=== PATIENT | female | born 1930 | race African-American/Black ===

== ENCOUNTER 2016-09-11 11:21 | Emergency (ER) | payer SELFPAY ==
[~2016-09-11] VITALS: Ht 170.2 cm; Wt 81.6 kg
[2016-09-11] MEDS ORDERED: IPRATRPIUM/ALBUTEROL 0.5/2.5MG 3 ML NEBU. NEB ONE (12:30)
--- NOTE | 2016-09-11 12:55 | RAD ---
AP chest radiograph 09/11/2016 Clinical indication: Shortness of air. Comparison: None. Findings: Mild enlargement of the cardiac silhouette without pulmonary venous hypertension. There is a trace left pleural effusion and mild left basilar atelectasis. No pneumothorax. Impression: Mild cardiomegaly, trace left pleural effusion and left basilar atelectasis.
--- NOTE | 2016-09-11 13:04 | EKG ---
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
--- NOTE | 2016-09-11 13:08 | PHYS DOC ---
Past Medical History Past Medical History: Asthma Past Surgical History: Cholecystectomy, Other Additional Past Surgical Histo: KIDNEY REMOVED? Alcohol Use: None Drug Use: None Adult General Chief Complaint Chief Complaint: SHORTNESS OF BREATH HPI HPI Patient is a 86 year old female brought to the ED by a family member with the complaint of short of air and legs swelling and left foot pain. It sounds like all of these have been going on for a while but the left foot pain may be more acute. Patient states she does have a history of asthma, sounds like it was diagnosed once in an ED. Patient does not take any medications and she does not have a doctor. She does not have any other diagnoses that she knows of. Patient has been short of air, denies cough or fever or chills. Patient has had bilateral leg swelling for "a long time", it may be worse but is not acute. She denies history of blood clots, denies fluid retention that she knows of. Patient has had pain on the bottom of her left foot more acutely. She denies injury. It hurts to walk on it. Patient lives with her son, who also has checked into the ED to be seen for right leg swelling. They were brought to the ED by I believe, the patient's brother, who visited them and was concerned. Review of Systems Review of Systems Constitutional: Denies fever or chills [] Eyes: Denies change in visual acuity, redness, or eye pain [] HENT: Denies nasal congestion or sore throat [] Respiratory: Denies cough but admits shortness of breath Cardiovascular: Denies chest pain GI: Denies abdominal pain, nausea, vomiting, bloody stools or diarrhea [] : Denies dysuria or hematuria [] Musculoskeletal: As in history of present illness, her pain is on the bottom of her left foot Integument: Denies rash or skin lesions [] Neurologic: Denies headache, focal weakness or sensory changes [] Current Medications Current Medications Current Medications Medications (Trade) Dose Ordered Sig/Mckenzie Start Time Stop Time Status Last Admin Dose Admin Albuterol/ Ipratropium (Duoneb) 3 ml 1X ONCE 09/11/16 12:30 09/11/16 12:31 DC 09/11/16 12:36 3 ML Allergies Allergies Allergies Coded Allergies Type Severity Reaction Last Updated Verified blueberry Allergy Intermediate 09/11/16 Yes Uncoded Allergies Type Severity Reaction Last Updated Verified HAIR DYES Allergy Mild "REACTION" 09/11/16 Physical Exam Physical Exam Constitutional: Well developed, well nourished, no acute distress, non-toxic appearance. No dyspnea, she does have a wheezy cough, pulse ox on room air 89-90 %. HENT: Normocephalic, atraumatic, bilateral external ears normal, nose normal. [ ] Eyes: conjunctiva normal, no discharge. [] Neck: Normal range of motion, no stridor. [] Cardiovascular:Heart rate regular rhythm, no murmur [] Lungs & Thorax: Prolonged expiratory phase throughout with expiratory wheezes, also rales in the bases especially left base Abdomen: Bowel sounds normal, soft, no tenderness, no masses, no pulsatile masses. [] Skin: Warm, dry, no erythema, no rash. [] Extremities: Calves, ankles, feet are bilaterally swollen with a plus pitting edema which appears chronic. There is no acute appearance of warmth or redness. Calves are soft bilaterally. [id number] unremarkable bilaterally. There is no skin breakdown over the Achilles area or posterior heel area. On the left plantar surface of the heel, there is some peeling of dry skin about 2 x 2 centimeters, this area is tender to palpation, but it does not have any deep skin breakdown, no redness, no evidence of cellulitis or abscess on inspection. Neurologic: Alert and oriented X 3, normal motor function, normal sensory function, no focal deficits noted. [] Current Patient Data Vital Signs Vital Signs Date Time Temp Pulse Resp B/P (MAP) Pulse Ox O2 Delivery O2 Flow Rate FiO2 09/11/16 14:00 70 165/76 (105) 90 Room Air 09/11/16 11:39 97.3 20 97.3 Lab Values Laboratory Tests Test 09/11/16 13:05 White Blood Count 5.4 x10^3/uL (4.0-11.0) Red Blood Count 4.57 x10^6/uL (3.50-5.40) Hemoglobin 13.5 g/dL (12.0-15.5) Hematocrit 41.1 % (36.0-47.0) Mean Corpuscular Volume 90 fL (79-100) Mean Corpuscular Hemoglobin 30 pg (25-35) Mean Corpuscular Hemoglobin Concent 33 g/dL (31-37) Red Cell Distribution Width 15.5 % (11.5-14.5) H Platelet Count 228 x10^3/uL (140-400) Neutrophils (%) (Auto) 65 % (31-73) Lymphocytes (%) (Auto) 16 % (24-48) L Monocytes (%) (Auto) 10 % (0-9) H Eosinophils (%) (Auto) 9 % (0-3) H Basophils (%) (Auto) 1 % (0-3) Neutrophils # (Auto) 3.5 x10^3uL (1.8-7.7) Lymphocytes # (Auto) 0.9 x10^3/uL (1.0-4.8) L Monocytes # (Auto) 0.5 x10^3/uL (0.0-1.1) Eosinophils # (Auto) 0.5 x10^3/uL (0.0-0.7) Basophils # (Auto) 0.0 x10^3/uL (0.0-0.2) Sodium Level 141 mmol/L (136-145) Potassium Level 4.2 mmol/L (3.5-5.1) Chloride Level 102 mmol/L (98-107) Carbon Dioxide Level 36 mmol/L (21-32) H Anion Gap 3 (6-14) L Blood Urea Nitrogen 10 mg/dL (7-20) Creatinine 0.8 mg/dL (0.6-1.0) Estimated GFR (Cockcroft-Gault) 82.7 BUN/Creatinine Ratio 13 (6-20) Glucose Level 97 mg/dL (70-99) Calcium Level 9.2 mg/dL (8.5-10.1) Total Bilirubin 0.3 mg/dL (0.2-1.0) Aspartate Amino Transferase (AST) 15 U/L (15-37) Alanine Aminotransferase (ALT) 14 U/L (14-59) Alkaline Phosphatase 90 U/L (46-116) BJ-Yld-I-Type Natriuretic Peptide 35 pg/mL (0-449) Total Protein 6.8 g/dL (6.4-8.2) Albumin 3.2 g/dL (3.4-5.0) L Albumin/Globulin Ratio 0.9 (1.0-1.7) L Laboratory Tests 09/11/16 13:05 Laboratory Tests 09/11/16 13:05 EKG EKG 12-lead EKG read by me. Sinus rhythm. Heart rate 74. There are no acute ST or T wave changes indicative of ischemia or infarction. No STEMI. 1221 Pulse ox on room air interpreted by me. 89-90% on room air. Hypoxia. resident physician interpreted by me. Sinus rhythm. Heart rate 70s. No rhythm disturbance or premature contractions noted. Normal. [] Radiology/Procedures Radiology/Procedures Portable chest x-ray read by the radiologist. Findings: Mild enlargement of the cardiac silhouette without pulmonary venous hypertension. There is a trace left pleural effusion and mild left basilar atelectasis. No pneumothorax. Impression: Mild cardiomegaly, trace left pleural effusion and left basilar atelectasis. [] Course & Med Decision Making Course & Med Decision Making Pertinent Labs and Imaging studies reviewed. (See chart for details) 86-year-old female who has no doctor, takes no medications, presents with a long history of bilateral leg swelling, a history of shortness of air which has worsened, and perhaps a more acute left foot pain. I don't see any definite cause of the foot pain but she does have an area on the plantar aspect of the left heel where the top a few layers of skin has peeled off, and that area is sensitive to touch, possibly an early cellulitis in that area. Patient was given a breathing treatment here in the ED without significant change. Labs, EKG , chest x-ray do not show any acute abnormalities. This patient is opposed to being admitted to the hospital. She did not even allow us to start a saline lock , stating that she doesn't believe she'll need anything done today. I don't believe any of her respiratory or swelling complaints are acute and I think she is stable for discharge. We will treat her swelling with a prescription for Lasix and also gave her prescription for an inhaler. For likely COPD exacerbation and a prescription for prednisone. Also a prescription for antibiotics for possible early cellulitis of her left foot. I discussed with the patient and her brother who is here with her the need to follow up with a primary care doctor and gave her a brochure with primary care doctors here [place]. See instructions for plan. [] Dragon Disclaimer Dragon Disclaimer This electronic medical record was generated, in whole or in part, using a voice recognition dictation system. Departure Departure Impression: Primary Impression: Chronic obstructive pulmonary disease with hypoxia Additional Impressions: Right heart failure Swelling of both lower extremities Cellulitis of left foot Disposition: 01 HOME, SELF-CARE Condition: STABLE Referrals: NO PCP (PCP) Patient Instructions: Cellulitis, Cwbs-vy-Suhy Additional Instructions: I believe your shortness of breath is from asthma or COPD which is causing you to wheeze. We will treat that with prednisone which is an anti-inflammatory, also an inhaler. If you continue to have problems, you might be helped by a nebulizer machine which a primary care doctor can order for you. Your leg swelling is caused by retaining fluid. I have prescribed a fluid medicine for you. Take one every morning. Your left foot pain might be a little infection in your skin, we will treat that with an antibiotic. Bactrim DS, also called TMP/SMZ is an antibiotic. Take twice a day until gone. Scripts Furosemide (LASIX) 20 Mg Tablet 1 TAB PO DAILY for leg swelling, fluid, #30 TAB 5 Refills Prov: LAURA PHAM MD 09/11/16 Sulfamethoxazole/Trimethoprim (BACTRIM DS TABLET) 1 Each Tablet 1 TAB PO BID for skin infection foot, #20 TAB Prov: LAURA PHAM MD 09/11/16 Prednisone (PREDNISONE) 20 Mg Tablet 40 MG PO DAILY for wheezing, shortness of breath for 5 Days, #10 TAB Prov: LAURA PHAM MD 09/11/16 Albuterol Sulfate (PROAIR HFA INHALER) 8.5 Gm Hfa.aer.ad 1 PUFF INH PRN Q6HRS Y for SHORTNESS OF BREATH for 30 Days, #1 INHALER 0 Refills Prov: LAURA PHAM MD 09/11/16 Problem Qualifiers LAURA PHAM MD Sep 11, 2016 13:08
[2016-09-11 13:20] LABS: BASO % 1 % (0-3); EOS % 9 % (0-3); HEMATOCRIT 41.1 % (36.0-47.0); HEMOGLOBIN 13.5 g/dL (12.0-15.5); LYMPH # 0.9 x10^3/uL (1.0-4.8); LYMPH % 16 % (24-48); MEAN CORPUSCULAR HEMOGLOBIN 30 pg (25-35); MEAN CORPUSCULAR HGB CONC 33 g/dL (31-37); MEAN CORPUSCULAR VOLUME 90 fL (79-100); MONO % 10 % (0-9); NEUT % 65 % (31-73); PLATELET COUNT 228 x10^3/uL (140-400); RED BLOOD COUNT 4.57 x10^6/uL (3.50-5.40); RED CELL DISTRIBUTION WIDTH 15.5 % (11.5-14.5); WHITE BLOOD COUNT 5.4 x10^3/uL (4.0-11.0)
[2016-09-11 13:41] LABS: CALCIUM 9.2 mg/dL (8.5-10.1); CREATININE 0.8 mg/dL (0.6-1.0); GFR 82.7; POTASSIUM 4.2 mmol/L (3.5-5.1)
[2016-09-11 13:47] LABS: ALBUMIN 3.2 g/dL (3.4-5.0); ALBUMIN/GLOBULIN RATIO 0.9 (1.0-1.7); TOTAL BILIRUBIN 0.3 mg/dL (0.2-1.0); TOTAL PROTEIN 6.8 g/dL (6.4-8.2)
[2016-09-11 14:00] VITALS: BP 165/76
[2016-09-11] MEDS ORDERED: PRED20TA PO (14:25)
[2016-09-11] MEDS ORDERED: SULF1TAB24 PO (14:25)
[2016-09-11] MEDS ORDERED: PROAIR HFA8.5 GM INH (14:25)
[2016-09-11] MEDS ORDERED: FURO-69 PO (14:25)
== END 2016-09-11 14:31 | disposition home or self-care (01) ==
LOC: ER 11:21
DX: I50.9 Heart failure, unspecified (principal); J44.9 Chronic obstructive pulmonary disease, unspecified; R09.02 Hypoxemia; L03.116 Cellulitis of left lower limb; J45.909 Unspecified asthma, uncomplicated; Z90.49 Acquired absence of other specified parts of digestive tract; Z91.041 Radiographic dye allergy status; Z91.018 Allergy to other foods
CPT/HCPCS: 36415; 71010; 80053; 83880; 85027; 93005; 94250; 94640; 99285; J7620

== ENCOUNTER 2016-11-15 17:29 | Inpatient (IN) | payer MEDICARE ==
[~2016-11-15] VITALS: Ht 170.2 cm; Wt 97.7 kg
[2016-11-15] MEDS: ALBUTEROL SULFATE 2.5 MG/3 ML NEBU. NEB SCH ×2 (00:09→20:00)
[~2016-11-15 17:29] MED LIST: FURO-69 PO; PRED20TA PO; PROAIR HFA8.5 GM INH; SULF1TAB24 PO
[2016-11-15 18:00] LABS: BASO # 0.1 x10^3/uL (0.0-0.2); BASO % 1 % (0-3); EOS % 2 % (0-3); HEMOGLOBIN 14.9 g/dL (12.0-15.5); LYMPH # 0.9 x10^3/uL (1.0-4.8); LYMPH % 18 % (24-48); MEAN CORPUSCULAR HEMOGLOBIN 29 pg (25-35); MEAN CORPUSCULAR HGB CONC 32 g/dL (31-37); MEAN CORPUSCULAR VOLUME 93 fL (79-100); MONO % 11 % (0-9); NEUT % 68 % (31-73); PLATELET COUNT 243 x10^3/uL (140-400); RED BLOOD COUNT 5.06 x10^6/uL (3.50-5.40); RED CELL DISTRIBUTION WIDTH 14.4 % (11.5-14.5); WHITE BLOOD COUNT 4.7 x10^3/uL (4.0-11.0)
[2016-11-15] MEDS ORDERED: IPRATRPIUM/ALBUTEROL 0.5/2.5MG 3 ML NEBU. NEB ONE (18:00)
[2016-11-15 18:10] LABS: INR 1.1 (0.8-1.1); PROTHROMBIN TIME PATIENT 13.6 SEC (11.7-14.0)
--- NOTE | 2016-11-15 18:12 | PHYS DOC ---
Past Medical History Past Medical History: Asthma Past Surgical History: Cholecystectomy, Other Additional Past Surgical Histo: KIDNEY REMOVED? Alcohol Use: None Drug Use: None Adult General Chief Complaint Chief Complaint: SHORTNESS OF BREATH HPI HPI Patient is a 86 year old female presenting to the emergency department for evaluation of shortness of breath that started this morning and has worsened throughout the day. And denies any cough but says that she has asthma but she has been unable to use her inhalers as she ran out of them. Patient denies any pain to me. Her legs are quite edematous but she seems to think they usually are swollen. Patient denies any productive cough fevers chills nausea vomiting or other systemic symptoms. Patient does not wear oxygen at home and her room air auction saturation is 82%. She tells me she has no primary care physician. Review of Systems Review of Systems Constitutional: Denies fever or chills [] Eyes: Denies change in visual acuity, redness, or eye pain [] HENT: Denies nasal congestion or sore throat [] Respiratory: Denies cough. + shortness of breath [] Cardiovascular: No additional information not addressed in HPI [] GI: Denies abdominal pain, nausea, vomiting, bloody stools or diarrhea [] : Denies dysuria or hematuria [] Musculoskeletal: Denies back pain or joint pain [] Integument: Denies rash or skin lesions [] Neurologic: Denies headache, focal weakness or sensory changes [] Current Medications Current Medications Current Medications Medications (Trade) Dose Ordered Sig/Mckenzie Start Time Stop Time Status Last Admin Dose Admin Albuterol Sulfate (Ventolin Neb Soln) 2.5 mg Q4H 11/15/16 19:00 11/15/16 20:00 2.5 MG Albuterol/ Ipratropium (Duoneb) 3 ml 1X ONCE 11/15/16 18:00 11/15/16 18:06 DC 11/15/16 17:53 3 ML Hydrochlorothiazide (Hydrodiuril) 25 mg 1X ONCE 11/15/16 19:30 11/15/16 19:31 DC 11/15/16 19:15 25 MG Lisinopril (Prinivil) 20 mg 1X ONCE 11/15/16 19:30 11/15/16 19:31 DC Methylprednisolone Sodium Succinate (SOLU-Medrol 125MG VIAL) 125 mg 1X ONCE 11/15/16 18:30 11/15/16 18:31 DC 11/15/16 18:27 125 MG Ondansetron HCl (Zofran) 4 mg PRN Q8HRS PRN 11/15/16 19:00 11/16/16 18:59 Allergies Allergies Allergies Coded Allergies Type Severity Reaction Last Updated Verified blueberry Allergy Intermediate 09/11/16 Yes Uncoded Allergies Type Severity Reaction Last Updated Verified HAIR DYES Allergy Mild "REACTION" 09/11/16 Physical Exam Physical Exam Constitutional: Well developed, well nourished, no acute distress, non-toxic appearance. [] HENT: Normocephalic, atraumatic, bilateral external ears normal, oropharynx moist, no oral exudates, nose normal. [] Eyes: PERRLA, EOMI, conjunctiva normal, no discharge. [] Neck: Normal range of motion, no tenderness, supple, no stridor. [] Cardiovascular:Heart rate regular rhythm, no murmur [] Lungs & Thorax: Bilateral breath sounds diminished with exp wheezing Abdomen: Bowel sounds normal, soft, no tenderness, no masses, no pulsatile masses. [] Skin: Warm, dry, no erythema, no rash. [] Back: No tenderness, no CVA tenderness. [] Extremities: No tenderness, no cyanosis, no clubbing, ROM intact, 2-3+ edema. [ ] Neurologic: Alert and oriented X 3, normal motor function, normal sensory function, no focal deficits noted. [] Current Patient Data Vital Signs Vital Signs Date Time Temp Pulse Resp B/P (MAP) Pulse Ox O2 Delivery O2 Flow Rate FiO2 11/15/16 19:51 97 Nasal Cannula 1.5 11/15/16 19:15 64 21 166/77 (106) 11/15/16 17:44 98.5 98.5 Lab Values Laboratory Tests Test 11/15/16 17:50 White Blood Count 4.7 x10^3/uL (4.0-11.0) Red Blood Count 5.06 x10^6/uL (3.50-5.40) Hemoglobin 14.9 g/dL (12.0-15.5) Hematocrit 47.0 % (36.0-47.0) Mean Corpuscular Volume 93 fL (79-100) Mean Corpuscular Hemoglobin 29 pg (25-35) Mean Corpuscular Hemoglobin Concent 32 g/dL (31-37) Red Cell Distribution Width 14.4 % (11.5-14.5) Platelet Count 243 x10^3/uL (140-400) Neutrophils (%) (Auto) 68 % (31-73) Lymphocytes (%) (Auto) 18 % (24-48) L Monocytes (%) (Auto) 11 % (0-9) H Eosinophils (%) (Auto) 2 % (0-3) Basophils (%) (Auto) 1 % (0-3) Neutrophils # (Auto) 3.2 x10^3uL (1.8-7.7) Lymphocytes # (Auto) 0.9 x10^3/uL (1.0-4.8) L Monocytes # (Auto) 0.5 x10^3/uL (0.0-1.1) Eosinophils # (Auto) 0.1 x10^3/uL (0.0-0.7) Basophils # (Auto) 0.1 x10^3/uL (0.0-0.2) Prothrombin Time 13.6 SEC (11.7-14.0) Prothrombin Time INR 1.1 (0.8-1.1) PTT 30 SEC (24-38) Sodium Level 138 mmol/L (136-145) Potassium Level 4.1 mmol/L (3.5-5.1) Chloride Level 100 mmol/L (98-107) Carbon Dioxide Level 37 mmol/L (21-32) H Anion Gap 1 (6-14) L Blood Urea Nitrogen 8 mg/dL (7-20) Creatinine 0.7 mg/dL (0.6-1.0) Estimated GFR (Cockcroft-Gault) 96.5 BUN/Creatinine Ratio 11 (6-20) Glucose Level 90 mg/dL (70-99) Calcium Level 10.1 mg/dL (8.5-10.1) Magnesium Level 2.0 mg/dL (1.8-2.4) Total Bilirubin 0.3 mg/dL (0.2-1.0) Aspartate Amino Transferase (AST) 17 U/L (15-37) Alanine Aminotransferase (ALT) 22 U/L (14-59) Alkaline Phosphatase 88 U/L (46-116) Troponin I Quantitative < 0.017 ng/mL (0.000-0.055) AE-Xlu-K-Type Natriuretic Peptide 38 pg/mL (0-449) Total Protein 8.2 g/dL (6.4-8.2) Albumin 3.8 g/dL (3.4-5.0) Albumin/Globulin Ratio 0.9 (1.0-1.7) L Laboratory Tests 11/15/16 17:50 Laboratory Tests 11/15/16 17:50 EKG EKG Sinus rhythm at 73 beats per minutes with leftward axis no obvious ST elevation or depression with prominent T waves in leads V4 V5 and V6 Radiology/Procedures Radiology/Procedures Normal mediastinum borderline cardiomegaly with no obvious free air pneumothorax or opacity however it appears she has left lower lobe effusion versus atelectasis Course & Med Decision Making Course & Med Decision Making Patient is quite hypoxic, we'll give breathing treatments and steroids check labs x-ray and reassess. Patient still hypoxic at 88% on room air says she will require admission for further observation and treatment. Patient admitted in stable condition. Dragon Disclaimer Dragon Disclaimer This electronic medical record was generated, in whole or in part, using a voice recognition dictation system. Departure Departure Impression: Primary Impression: COPD (chronic obstructive pulmonary disease) Additional Impression: Hypoxia Disposition: 09 ADMITTED INPATIENT Admitting Physician: Ev Francisco Condition: STABLE Referrals: NO PCP (PCP) Problem Qualifiers Primary Impression: COPD (chronic obstructive pulmonary disease) COPD type: COPD with acute exacerbation Qualified Codes: J44.1 - Chronic obstructive pulmonary disease with (acute) exacerbation LAURIE NAYLOR DO Nov 15, 2016 18:12
[2016-11-15 18:14] LABS: CALCIUM 10.1 mg/dL (8.5-10.1); CREATININE 0.7 mg/dL (0.6-1.0); GFR 96.5; POTASSIUM 4.1 mmol/L (3.5-5.1)
[2016-11-15 18:20] LABS: ALBUMIN 3.8 g/dL (3.4-5.0); ALBUMIN/GLOBULIN RATIO 0.9 (1.0-1.7); TOTAL BILIRUBIN 0.3 mg/dL (0.2-1.0); TOTAL PROTEIN 8.2 g/dL (6.4-8.2)
[2016-11-15] MEDS ORDERED: methylPREDNISolone SOD SUCC PF 125 MG/2 ML VIAL. IV ONE (18:30)
[2016-11-15] MEDS ORDERED: ONDANSETRON PF 4 MG/2 ML VIAL. IV PRN (19:00)
[2016-11-15] MEDS ORDERED: LISINOPRIL 10 MG TABLET PO ONE (19:30)
[2016-11-15] MEDS ORDERED: hydroCHLOROthiazide 25 MG TABLET PO ONE (19:30)
[2016-11-15 21:00] VITALS: BP 187/76
[2016-11-15 23:00] VITALS: BP 149/59
[2016-11-16 03:00] VITALS: BP 133/89
[2016-11-16] MEDS: ALBUTEROL SULFATE 2.5 MG/3 ML NEBU. NEB SCH ×2 (03:26→07:45)
[2016-11-16 04:41] LABS: CALCIUM 9.8 mg/dL (8.5-10.1); CREATININE 0.6 mg/dL (0.6-1.0); GFR 115.2; POTASSIUM 4.5 mmol/L (3.5-5.1)
[2016-11-16 05:17] LABS: BASO % 0 % (0-3); EOS % 0 % (0-3); HEMOGLOBIN 13.7 g/dL (12.0-15.5); LYMPH # 0.2 x10^3/uL (1.0-4.8); LYMPH % 7 % (24-48); MEAN CORPUSCULAR HEMOGLOBIN 29 pg (25-35); MEAN CORPUSCULAR HGB CONC 31 g/dL (31-37); MEAN CORPUSCULAR VOLUME 93 fL (79-100); MONO % 1 % (0-9); NEUT % 92 % (31-73); RED BLOOD COUNT 4.73 x10^6/uL (3.50-5.40); RED CELL DISTRIBUTION WIDTH 14.2 % (11.5-14.5); WHITE BLOOD COUNT 3.3 x10^3/uL (4.0-11.0)
[2016-11-16 05:19] LABS: PLATELET COUNT 228 x10^3/uL (140-400)
[2016-11-16 05:58] LABS: BILIRUBIN,URINE NEGATIVE (NEG); GLUCOSE,URINE NEGATIVE (NEG); NITRITE,URINE NEGATIVE (NEG); PH,URINE 5.5; PROTEIN,URINE NEGATIVE (NEG-TRACE); UROBILINOGEN,URINE 0.2 mg/dL (0.2 mg/dL)
[2016-11-16 06:02] LABS: BACTERIA,URINE FEW /HPF (0-FEW); RBC,URINE 0 /HPF (0-2); SQUAMOUS EPITHELIAL CELL,UR FEW /LPF; WBC,URINE OCC /HPF (0-4)
[2016-11-16 07:00] VITALS: BP 155/68
[2016-11-16 07:11] LABS: PLT ESTIMATE ADEQUATE (ADEQUATE)
--- NOTE | 2016-11-16 07:25 | EKG ---
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
--- NOTE | 2016-11-16 07:38 | RAD ---
Chest x-ray Indication: Short of breath, bilateral leg swelling Technique: Portable AP upright chest x-ray Comparison: 09/11/2016 Findings: Heart is slightly enlarged in size. Tortuous thoracic aorta. There is mild opacification of the costophrenic angle on the left. Stable prominence of pulmonary vasculature. No focal consolidation. No pneumothorax. Visualized bony thorax within normal limits. Impression: 1. Mild opacity at the left costophrenic region may represent epicardial fat pad, atelectasis or trace pleural effusion. 2. Stable mild cardiomegaly.
[2016-11-16] MEDS ORDERED: PNEUMOC CONJ VACC 23-VALENT 0.5 ML VIAL. VAX IM ONE (09:00)
[2016-11-16] MEDS ORDERED: FLU VACC QS2017-18 (36MOS+)/PF 0.5 ML SYRINGE. VAX IM ONE (09:00)
[2016-11-16] MEDS ORDERED: INFLUENZA VAX SCREEN BY RX. MC ONE (09:00)
[2016-11-16] MEDS ORDERED: PNEUMOCOCCAL VAX SCREEN BY RX. MC ONE (09:00)
[2016-11-16 11:00] VITALS: BP 134/47
[2016-11-16] MEDS ORDERED: traMADol 50 MG TABLET PO PRN (11:15)
[2016-11-16] MEDS ORDERED: ACETAMINOPHEN 325 MG TABLET. PO PRN (11:15)
[2016-11-16] MEDS ORDERED: ONDANSETRON PF 4 MG/2 ML VIAL. IV PRN (11:15)
[2016-11-16] MEDS ORDERED: hydrALAZINE 20 MG/ML VIAL. IVP PRN (11:15)
[2016-11-16] MEDS ORDERED: ALBUTEROL SULFATE 2.5 MG/3 ML NEBU. NEB PRN (11:15)
[2016-11-16] MEDS ORDERED: MORPHINE SULFATE 4 MG/ML DISP.SYRIN. IV PRN (11:15)
--- NOTE | 2016-11-16 11:50 | PDOC ---
Provider Note Provider Note dictated EDILBERTO FLETCHER MD Nov 16, 2016 11:50
--- NOTE | 2016-11-16 12:06 | CONS ---
DATE OF CONSULTATION: PULMONARY CONSULTATION ATTENDING PHYSICIAN: Dr. Ev Francisco. REASON FOR CONSULTATION: Asthma. HISTORY OF PRESENT ILLNESS: The patient is an 86-year-old female who has history of adult-onset asthma. She is not the best historian. She was brought into the hospital complaining of shortness of breath and wheezing. The patient had no significant cough, no chest pains, no headaches. No nausea, vomiting or diarrhea. Her was at the bedside who also helped in giving history. The patient has chronic lower extremity edema. Her chest x-ray was reviewed. It shows minimal blunting of the costophrenic angle. The patient is currently requiring 2 liters of oxygen. She was placed on DuoNebs and I have been asked to see her for further evaluation. PAST MEDICAL HISTORY: Significant for asthma. PAST SURGICAL HISTORY: Cholecystectomy and questionable kidney removal. ALLERGIES: HAIR DYES AND BLUEBERRY. MEDICATIONS: Reviewed as listed in the MRAD. REVIEW OF SYSTEMS: Twelve-point systems obtained. Pertinent positives discussed in my history of present illness, otherwise noncontributory. All systems that were negative were reviewed as well. SOCIAL HISTORY: She denies any history of significant tobacco use. FAMILY HISTORY: Noncontributory to lungs. PHYSICAL EXAMINATION: VITAL SIGNS: Stable. Pulse ox 97% on 2 liters. NECK: Supple. LUNGS: With bilateral expiratory wheezes. CARDIOVASCULAR EXAMINATION: Regular rate and rhythm. ABDOMEN: Soft. EXTREMITIES: With bilateral pitting edema. LABORATORY DATA: Labs were reviewed. White cell count has dropped to 3.3, hemoglobin 13.7 and platelets are 228,000. IMPRESSION: 1. Dyspnea with hypoxia, most likely secondary to acute asthma exacerbation in a patient with known history of asthma. 2. No definite pneumonia seen on the chest x-ray. There is some mild blunting of the left costophrenic angle, which may be due to pleural thickening. 3. Leukopenia, could be viral induced and need to monitor closely. 4. Lower extremity edema. Obtain TSH level to make sure it is not related to hypothyroidism. RECOMMENDATIONS: 1. Continue with present DuoNebs. 2. Add steroids, nebulizer. 3. Add low-dose Solu-Medrol. 4. Obtain TSH level. 5. Continue oxygen. 6. Discussed with RN and the patient's . EDILBERTO FLETCHER MD DR: Kayleen JOB#: [id number] / [id number]
[2016-11-16] MEDS: IPRATRPIUM/ALBUTEROL 0.5/2.5MG 3 ML NEBU. NEB SCH ×3 (12:44→19:12)
--- NOTE | 2016-11-16 13:24 | PDOC1 ---
History and Physical Date of Admission Date of Admission 11/15/16 Identification/Chief Complaint Chief Complaint sob Problems: Source Source: Chart review, Patient History of Present Illness History of Present Illness Patient is a 86 year old female presenting to the emergency department for evaluation of shortness of breath x1 week. Pt is a poor historian, no PCP, lives with her son who is also disabled. Pt is a smoker <1PPD, only on albuterol daily for asthma as per pt. but never fu with a pulm. She said cont having sob x1 week, not exertional. denies cough, chest pain, sputum, fever, chills. + wheezing last night as per pt, but none now. she c/o bl heel pain, said came to ER and was given some abx for 20days before and again 2 days ago, but i cannot find any evidence from our records. as per ERP, Patient does not wear oxygen at home and her room air auction saturation is 82%. now on NC 2L. pt insists she has leg infection and requires me to give her abx. Her son required us to give all vaccine including TDap. Past Medical History Pulmonary: Asthma Past Surgical History Past Surgical History: No pertinent history Family History Family History: Hypertension Social History Smoke: <1 pack per day ALCOHOL: none Drugs: None Current Medications Current Medications Current Medications Medications (Trade) Dose Ordered Sig/Mckenzie Start Time Stop Time Status Last Admin Dose Admin Acetaminophen (Tylenol) 650 mg PRN Q6HRS PRN 11/16/16 11:15 Albuterol Sulfate (Ventolin Neb Soln) 2.5 mg PRN Q2HR PRN 11/16/16 11:15 Albuterol/ Ipratropium (Duoneb) 3 ml RTQID 11/16/16 12:00 11/16/16 12:44 3 ML Budesonide (Pulmicort) 0.5 mg RTBID 11/16/16 20:00 Docusate Sodium (Colace) 100 mg PRN DAILY PRN 11/16/16 11:15 Guaifenesin (Mucinex) 600 mg BID 11/16/16 12:00 11/16/16 12:08 600 MG Hydralazine HCl (Apresoline) 10 mg PRN Q4HRS PRN 11/16/16 11:15 Hydrochlorothiazide (Hydrodiuril) 25 mg 1X ONCE 11/15/16 19:30 11/15/16 19:31 DC 11/15/16 19:15 25 MG Influenza Virus Vaccine Quadrival (Fluarix Quad [id number] Syringe) 0.5 ml ONCE ONCE 11/16/16 09:00 11/16/16 09:01 DC 11/16/16 09:22 0.5 ML Info (Do NOT chart on this placeholder) 1 each 1X ONCE 11/16/16 09:00 11/16/16 09:01 UNV Lisinopril (Prinivil) 20 mg 1X ONCE 11/15/16 19:30 11/15/16 19:31 DC 11/15/16 20:36 20 MG Methylprednisolone Sodium Succinate (SOLU-Medrol 40MG VIAL) 40 mg Q8HRS 11/16/16 14:00 Methylprednisolone Sodium Succinate (SOLU-Medrol 125MG VIAL) 125 mg 1X ONCE 11/15/16 18:30 11/15/16 18:31 DC 11/15/16 18:27 125 MG Morphine Sulfate 2 mg PRN Q2HR PRN 11/16/16 11:15 Ondansetron HCl (Zofran) 4 mg PRN Q6HRS PRN 11/16/16 11:15 Pneumococcal Polyvalent Vaccine (Do NOT chart on this placeholder) 1 each 1X ONCE 11/16/16 09:00 11/16/16 09:01 UNV Pneumococcal Polyvalent Vaccine (Pneumovax 23) 0.5 ml ONCE ONCE 11/16/16 09:00 11/16/16 09:01 DC 11/16/16 09:25 0.5 ML Tramadol HCl (Ultram) 50 mg PRN Q6HRS PRN 11/16/16 11:15 Allergies Allergies Allergies Coded Allergies Type Severity Reaction Last Updated Verified blueberry Allergy Intermediate 09/11/16 Yes Uncoded Allergies Type Severity Reaction Last Updated Verified HAIR DYES Allergy Mild "REACTION" 09/11/16 ROS Review of System CONSTITUTIONAL: No fever or chills EYES: No recent changes SKIN: No rash or itching CARDIOVASCULAR: No chest pain, syncope, palpitations, or edema RESPIRATORY: + SOB no cough GASTROINTESTINAL: No nausea, vomiting or abdominal pain NEUROLOGICAL: No headaches or weakness ENDOCRINE: No cold or heat intolerance GENITOURINARY: No urgency or frequency of urination MUSCULOSKELETAL: No back pain or joint pain LYMPHATICS: No enlarged lymph nodes PSYCHIATRIC: No anxiety or depression Physical Exam Physical Exam GEN.: No apparent distress. Alert and oriented. HEENT: Head is normocephalic, atraumatic NECK: Supple. LUNGS: Clear to auscultation. HEART: RRR, S1, S2 present. Peripheral pulses intact ABDOMEN: Soft, nontender. Positive bowel sounds. EXTREMITIES: Without any cyanosis. bl leg 2+ chronic lymphedema, no sign of infection NEUROLOGIC: Normal speech, normal tone PSYCHIATRIC: Normal affect, normal mood. SKIN: No ulcerations Vitals Vitals Vital Signs Date Time Temp Pulse Resp B/P (MAP) Pulse Ox O2 Delivery O2 Flow Rate FiO2 11/16/16 12:44 95 Nasal Cannula 2.0 11/16/16 11:00 97.9 81 20 134/47 (76) 97.9 Labs Labs Laboratory Tests Test 11/15/16 17:50 11/16/16 03:20 11/16/16 05:45 White Blood Count 4.7 x10^3/uL (4.0-11.0) 3.3 x10^3/uL (4.0-11.0) Red Blood Count 5.06 x10^6/uL (3.50-5.40) 4.73 x10^6/uL (3.50-5.40) Hemoglobin 14.9 g/dL (12.0-15.5) 13.7 g/dL (12.0-15.5) Hematocrit 47.0 % (36.0-47.0) 44.0 % (36.0-47.0) Mean Corpuscular Volume 93 fL (79-100) 93 fL (79-100) Mean Corpuscular Hemoglobin 29 pg (25-35) 29 pg (25-35) Mean Corpuscular Hemoglobin Concent 32 g/dL (31-37) 31 g/dL (31-37) Red Cell Distribution Width 14.4 % (11.5-14.5) 14.2 % (11.5-14.5) Platelet Count 243 x10^3/uL (140-400) 228 x10^3/uL (140-400) Neutrophils (%) (Auto) 68 % (31-73) 92 % (31-73) Lymphocytes (%) (Auto) 18 % (24-48) 7 % (24-48) Monocytes (%) (Auto) 11 % (0-9) 1 % (0-9) Eosinophils (%) (Auto) 2 % (0-3) 0 % (0-3) Basophils (%) (Auto) 1 % (0-3) 0 % (0-3) Neutrophils # (Auto) 3.2 x10^3uL (1.8-7.7) 3.0 x10^3uL (1.8-7.7) Lymphocytes # (Auto) 0.9 x10^3/uL (1.0-4.8) 0.2 x10^3/uL (1.0-4.8) Monocytes # (Auto) 0.5 x10^3/uL (0.0-1.1) 0.0 x10^3/uL (0.0-1.1) Eosinophils # (Auto) 0.1 x10^3/uL (0.0-0.7) 0.0 x10^3/uL (0.0-0.7) Basophils # (Auto) 0.1 x10^3/uL (0.0-0.2) 0.0 x10^3/uL (0.0-0.2) Prothrombin Time 13.6 SEC (11.7-14.0) Prothromb Time International Ratio 1.1 (0.8-1.1) Activated Partial Thromboplast Time 30 SEC (24-38) Sodium Level 138 mmol/L (136-145) 139 mmol/L (136-145) Potassium Level 4.1 mmol/L (3.5-5.1) 4.5 mmol/L (3.5-5.1) Chloride Level 100 mmol/L (98-107) 102 mmol/L (98-107) Carbon Dioxide Level 37 mmol/L (21-32) 35 mmol/L (21-32) Anion Gap 1 (6-14) 2 (6-14) Blood Urea Nitrogen 8 mg/dL (7-20) 10 mg/dL (7-20) Creatinine 0.7 mg/dL (0.6-1.0) 0.6 mg/dL (0.6-1.0) Estimated GFR (Cockcroft-Gault) 96.5 115.2 BUN/Creatinine Ratio 11 (6-20) Glucose Level 90 mg/dL (70-99) 166 mg/dL (70-99) Calcium Level 10.1 mg/dL (8.5-10.1) 9.8 mg/dL (8.5-10.1) Magnesium Level 2.0 mg/dL (1.8-2.4) Total Bilirubin 0.3 mg/dL (0.2-1.0) Aspartate Amino Transf (AST/SGOT) 17 U/L (15-37) Alanine Aminotransferase (ALT/SGPT) 22 U/L (14-59) Alkaline Phosphatase 88 U/L (46-116) Troponin I Quantitative < 0.017 ng/mL (0.000-0.055) TS-Fuo-M-Type Natriuretic Peptide 38 pg/mL (0-449) Total Protein 8.2 g/dL (6.4-8.2) Albumin 3.8 g/dL (3.4-5.0) Albumin/Globulin Ratio 0.9 (1.0-1.7) Segmented Neutrophils % 94 % (35-66) Lymphocytes % 4 % (24-48) Monocytes % 2 % (0-10) Platelet Estimate Adequate (ADEQUATE) Thyroid Stimulating Hormone (TSH) 0.853 uIU/mL (0.358-3.74) Urine Collection Type Unknown Urine Color Yellow Urine Clarity Clear Urine pH 5.5 Urine Specific [place] 1.020 Urine Protein Negative mg/dL (NEG-TRACE) Urine Glucose (UA) Negative mg/dL (NEG) Urine Ketones (Stick) Negative mg/dL (NEG) Urine Blood Negative (NEG) Urine Nitrite Negative (NEG) Urine Bilirubin Negative (NEG) Urine Urobilinogen Dipstick 0.2 mg/dL (0.2 mg/dL) Urine Leukocyte Esterase Negative (NEG) Urine RBC 0 /HPF (0-2) Urine WBC Occ /HPF (0-4) Urine Squamous Epithelial Cells Few /LPF Urine Bacteria Few /HPF (0-FEW) Urine Mucus Mod /LPF Laboratory Tests Test 11/15/16 17:50 11/16/16 03:20 11/16/16 05:45 White Blood Count 4.7 x10^3/uL (4.0-11.0) 3.3 x10^3/uL (4.0-11.0) Red Blood Count 5.06 x10^6/uL (3.50-5.40) 4.73 x10^6/uL (3.50-5.40) Hemoglobin 14.9 g/dL (12.0-15.5) 13.7 g/dL (12.0-15.5) Hematocrit 47.0 % (36.0-47.0) 44.0 % (36.0-47.0) Mean Corpuscular Volume 93 fL (79-100) 93 fL (79-100) Mean Corpuscular Hemoglobin 29 pg (25-35) 29 pg (25-35) Mean Corpuscular Hemoglobin Concent 32 g/dL (31-37) 31 g/dL (31-37) Red Cell Distribution Width 14.4 % (11.5-14.5) 14.2 % (11.5-14.5) Platelet Count 243 x10^3/uL (140-400) 228 x10^3/uL (140-400) Neutrophils (%) (Auto) 68 % (31-73) 92 % (31-73) Lymphocytes (%) (Auto) 18 % (24-48) 7 % (24-48) Monocytes (%) (Auto) 11 % (0-9) 1 % (0-9) Eosinophils (%) (Auto) 2 % (0-3) 0 % (0-3) Basophils (%) (Auto) 1 % (0-3) 0 % (0-3) Neutrophils # (Auto) 3.2 x10^3uL (1.8-7.7) 3.0 x10^3uL (1.8-7.7) Lymphocytes # (Auto) 0.9 x10^3/uL (1.0-4.8) 0.2 x10^3/uL (1.0-4.8) Monocytes # (Auto) 0.5 x10^3/uL (0.0-1.1) 0.0 x10^3/uL (0.0-1.1) Eosinophils # (Auto) 0.1 x10^3/uL (0.0-0.7) 0.0 x10^3/uL (0.0-0.7) Basophils # (Auto) 0.1 x10^3/uL (0.0-0.2) 0.0 x10^3/uL (0.0-0.2) Prothrombin Time 13.6 SEC (11.7-14.0) Prothromb Time International Ratio 1.1 (0.8-1.1) Activated Partial Thromboplast Time 30 SEC (24-38) Sodium Level 138 mmol/L (136-145) 139 mmol/L (136-145) Potassium Level 4.1 mmol/L (3.5-5.1) 4.5 mmol/L (3.5-5.1) Chloride Level 100 mmol/L (98-107) 102 mmol/L (98-107) Carbon Dioxide Level 37 mmol/L (21-32) 35 mmol/L (21-32) Anion Gap 1 (6-14) 2 (6-14) Blood Urea Nitrogen 8 mg/dL (7-20) 10 mg/dL (7-20) Creatinine 0.7 mg/dL (0.6-1.0) 0.6 mg/dL (0.6-1.0) Estimated GFR (Cockcroft-Gault) 96.5 115.2 BUN/Creatinine Ratio 11 (6-20) Glucose Level 90 mg/dL (70-99) 166 mg/dL (70-99) Calcium Level 10.1 mg/dL (8.5-10.1) 9.8 mg/dL (8.5-10.1) Magnesium Level 2.0 mg/dL (1.8-2.4) Total Bilirubin 0.3 mg/dL (0.2-1.0) Aspartate Amino Transf (AST/SGOT) 17 U/L (15-37) Alanine Aminotransferase (ALT/SGPT) 22 U/L (14-59) Alkaline Phosphatase 88 U/L (46-116) Troponin I Quantitative < 0.017 ng/mL (0.000-0.055) QT-Yxk-E-Type Natriuretic Peptide 38 pg/mL (0-449) Total Protein 8.2 g/dL (6.4-8.2) Albumin 3.8 g/dL (3.4-5.0) Albumin/Globulin Ratio 0.9 (1.0-1.7) Segmented Neutrophils % 94 % (35-66) Lymphocytes % 4 % (24-48) Monocytes % 2 % (0-10) Platelet Estimate Adequate (ADEQUATE) Thyroid Stimulating Hormone (TSH) 0.853 uIU/mL (0.358-3.74) Urine Collection Type Unknown Urine Color Yellow Urine Clarity Clear Urine pH 5.5 Urine Specific [place] 1.020 Urine Protein Negative mg/dL (NEG-TRACE) Urine Glucose (UA) Negative mg/dL (NEG) Urine Ketones (Stick) Negative mg/dL (NEG) Urine Blood Negative (NEG) Urine Nitrite Negative (NEG) Urine Bilirubin Negative (NEG) Urine Urobilinogen Dipstick 0.2 mg/dL (0.2 mg/dL) Urine Leukocyte Esterase Negative (NEG) Urine RBC 0 /HPF (0-2) Urine WBC Occ /HPF (0-4) Urine Squamous Epithelial Cells Few /LPF Urine Bacteria Few /HPF (0-FEW) Urine Mucus Mod /LPF VTE Prophylaxis Ordered VTE Prophylaxis Devices: Yes VTE Pharmacological Prophylaxi: Yes Assessment/Plan Assessment/Plan acute hypoxic resp failure with asthma/copd exacerbation h/o asthma likely copd WITH SMOKING tobaccoism morbid obeisity BMI 33.4 bl lower ext chronic lymphedema with pain neuropathy plan: pulm consulted, solumedrol as per pulm add duoneb, albuterol prn PTOT lymphedema care no indication of infection for abx dvt ppx SW for possible snf possible peripheral neuropathy, check vitb12, add gabapentin got flu, PNA vaccine, Tdap can be done as outpt. TERRANCE BAILEY MD Nov 16, 2016 13:24
[2016-11-16] MEDS: methylPREDNISolone SOD SUCC PF 40 MG/ML VIAL. IV SCH ×2 (13:55→21:10)
[2016-11-16] MEDS: GABAPENTIN 100 MG CAPSULE. PO SCH ×2 (13:55→21:10)
[2016-11-16] MEDS ORDERED: ENOXAPARIN 40 MG/0.4 ML SYRINGE. SQ SCH (14:00)
[2016-11-16 15:00] VITALS: BP 134/51
--- NOTE | 2016-11-16 16:05 | PDOC2 ---
PALLIATIVE CARE Palliative Care Note Palliative Care Patient alert. sitting up in bed. Denies pain or SOB. Oxygen 3L NC Consult requested by Dr. Vasquez to address code status Diagnosis: asthma, COPD; continues to smoke. Met with patient and son Husam. Patient is unable to provide medical information or reason for hospitalization. Does not want to talk about resuscitation. "Don't want to think about it" Refused to answer questions about chest compressions and ventilation if heart stops and she stops breathing. "I'm too young to talk about that" Spoke with brother Geovanny Bernal. Patient is from [place]--has lived here with her son for 1 year. Geovanny states she was in [facility] 6 months ago with respiratory issues, and swollen legs. Patient has never shared her wishes about end of life with him. She has not worked for many years. Shared that patient is not willing to share information because of "what happened many years ago" Not surprised that she will not share medicare/insurance information. Likely has some Dementia per Geovanny. Gevoanny provided some inconsistent information about how long it has been since he has seen his sister and what care he provides. Informed that Husam, patient's son is staying at the hospital with his mother. States he would be safe to go home at [address] [place] [address]. Will continue to see if patient is willing to talk about her wishes regarding resuscitation. CORY THOMSON Nov 16, 2016 16:05
[2016-11-16 19:00] VITALS: BP 117/49
[2016-11-16] MEDS: BUDESONIDE 0.5 MG/2 ML NEBU. NEB SCH (19:12)
[2016-11-16] MEDS ORDERED: FAMOTIDINE 20 MG TABLET. PO SCH (21:00)
[2016-11-16 23:00] VITALS: BP 122/43
[2016-11-17 03:00] VITALS: BP 157/62
[2016-11-17] MEDS: methylPREDNISolone SOD SUCC PF 40 MG/ML VIAL. IV SCH (06:16)
[2016-11-17 07:00] VITALS: BP 170/80
[2016-11-17 07:33] LABS: CALCIUM 10.2 mg/dL (8.5-10.1); CREATININE 0.6 mg/dL (0.6-1.0); GFR 115.2; POTASSIUM 4.7 mmol/L (3.5-5.1)
[2016-11-17] MEDS: BUDESONIDE 0.5 MG/2 ML NEBU. NEB SCH (07:35)
[2016-11-17] MEDS: IPRATRPIUM/ALBUTEROL 0.5/2.5MG 3 ML NEBU. NEB SCH ×3 (07:35→14:03)
[2016-11-17 08:08] LABS: BASO % 0 % (0-3); EOS % 0 % (0-3); HEMATOCRIT 43.3 % (36.0-47.0); HEMOGLOBIN 13.4 g/dL (12.0-15.5); LYMPH # 0.3 x10^3/uL (1.0-4.8); LYMPH % 5 % (24-48); MEAN CORPUSCULAR HEMOGLOBIN 29 pg (25-35); MEAN CORPUSCULAR HGB CONC 31 g/dL (31-37); MEAN CORPUSCULAR VOLUME 94 fL (79-100); MONO % 6 % (0-9); NEUT % 89 % (31-73); PLATELET COUNT 153 x10^3/uL (140-400); RED BLOOD COUNT 4.59 x10^6/uL (3.50-5.40); RED CELL DISTRIBUTION WIDTH 14.7 % (11.5-14.5); WHITE BLOOD COUNT 6.5 x10^3/uL (4.0-11.0)
[2016-11-17] MEDS: GABAPENTIN 100 MG CAPSULE. PO SCH ×2 (08:33→08:38)
[2016-11-17] MEDS: DOCUSATE SODIUM 100 MG CAPSULE. PO PRN ×2 (08:33→08:37)
[2016-11-17 11:00] VITALS: BP 145/81
--- NOTE | 2016-11-17 11:12 | PDOC2 ---
PALLIATIVE CARE Palliative Care Note Palliative Care Patient alert. Sitting in chair. Son sitting outside room Patient refuses to talk about resuscitation or any wishes if she becomes seriously ill. "I have to see my relief worker first" Alert oriented to person and place. PT recommends SNU. Palliative Care will sign off. CORY THOMSON Nov 17, 2016 11:12
[2016-11-17] MEDS ORDERED: GABA-585 PO (12:11)
--- NOTE | 2016-11-17 12:19 | PDOC ---
PULMONARY PROGRESS NOTES Subjective no soa Vitals Vital Signs Date Time Temp Pulse Resp B/P (MAP) Pulse Ox O2 Delivery O2 Flow Rate FiO2 11/17/16 11:00 98.1 95 20 145/81 (102) 92 Nasal Cannula 98.1 11/17/16 08:00 2.0 General: Alert, No acute distress Lungs: Clear Cardiovascular: S1 Abdomen: Soft Neuro Exam: Alert Extremities: Other (bilateral edema) Labs Laboratory Tests Test 11/15/16 17:50 11/16/16 03:20 11/16/16 05:45 11/17/16 07:00 White Blood Count 4.7 x10^3/uL (4.0-11.0) 3.3 x10^3/uL (4.0-11.0) 6.5 x10^3/uL (4.0-11.0) Red Blood Count 5.06 x10^6/uL (3.50-5.40) 4.73 x10^6/uL (3.50-5.40) 4.59 x10^6/uL (3.50-5.40) Hemoglobin 14.9 g/dL (12.0-15.5) 13.7 g/dL (12.0-15.5) 13.4 g/dL (12.0-15.5) Hematocrit 47.0 % (36.0-47.0) 44.0 % (36.0-47.0) 43.3 % (36.0-47.0) Mean Corpuscular Volume 93 fL (79-100) 93 fL (79-100) 94 fL (79-100) Mean Corpuscular Hemoglobin 29 pg (25-35) 29 pg (25-35) 29 pg (25-35) Mean Corpuscular Hemoglobin Concent 32 g/dL (31-37) 31 g/dL (31-37) 31 g/dL (31-37) Red Cell Distribution Width 14.4 % (11.5-14.5) 14.2 % (11.5-14.5) 14.7 % (11.5-14.5) Platelet Count 243 x10^3/uL (140-400) 228 x10^3/uL (140-400) 153 x10^3/uL (140-400) Neutrophils (%) (Auto) 68 % (31-73) 92 % (31-73) 89 % (31-73) Lymphocytes (%) (Auto) 18 % (24-48) 7 % (24-48) 5 % (24-48) Monocytes (%) (Auto) 11 % (0-9) 1 % (0-9) 6 % (0-9) Eosinophils (%) (Auto) 2 % (0-3) 0 % (0-3) 0 % (0-3) Basophils (%) (Auto) 1 % (0-3) 0 % (0-3) 0 % (0-3) Neutrophils # (Auto) 3.2 x10^3uL (1.8-7.7) 3.0 x10^3uL (1.8-7.7) 5.8 x10^3uL (1.8-7.7) Lymphocytes # (Auto) 0.9 x10^3/uL (1.0-4.8) 0.2 x10^3/uL (1.0-4.8) 0.3 x10^3/uL (1.0-4.8) Monocytes # (Auto) 0.5 x10^3/uL (0.0-1.1) 0.0 x10^3/uL (0.0-1.1) 0.4 x10^3/uL (0.0-1.1) Eosinophils # (Auto) 0.1 x10^3/uL (0.0-0.7) 0.0 x10^3/uL (0.0-0.7) 0.0 x10^3/uL (0.0-0.7) Basophils # (Auto) 0.1 x10^3/uL (0.0-0.2) 0.0 x10^3/uL (0.0-0.2) 0.0 x10^3/uL (0.0-0.2) Prothrombin Time 13.6 SEC (11.7-14.0) Prothromb Time International Ratio 1.1 (0.8-1.1) Activated Partial Thromboplast Time 30 SEC (24-38) Sodium Level 138 mmol/L (136-145) 139 mmol/L (136-145) 140 mmol/L (136-145) Potassium Level 4.1 mmol/L (3.5-5.1) 4.5 mmol/L (3.5-5.1) 4.7 mmol/L (3.5-5.1) Chloride Level 100 mmol/L (98-107) 102 mmol/L (98-107) 100 mmol/L (98-107) Carbon Dioxide Level 37 mmol/L (21-32) 35 mmol/L (21-32) 36 mmol/L (21-32) Anion Gap 1 (6-14) 2 (6-14) 4 (6-14) Blood Urea Nitrogen 8 mg/dL (7-20) 10 mg/dL (7-20) 12 mg/dL (7-20) Creatinine 0.7 mg/dL (0.6-1.0) 0.6 mg/dL (0.6-1.0) 0.6 mg/dL (0.6-1.0) Estimated GFR (Cockcroft-Gault) 96.5 115.2 115.2 BUN/Creatinine Ratio 11 (6-20) Glucose Level 90 mg/dL (70-99) 166 mg/dL (70-99) 113 mg/dL (70-99) Calcium Level 10.1 mg/dL (8.5-10.1) 9.8 mg/dL (8.5-10.1) 10.2 mg/dL (8.5-10.1) Magnesium Level 2.0 mg/dL (1.8-2.4) Total Bilirubin 0.3 mg/dL (0.2-1.0) Aspartate Amino Transf (AST/SGOT) 17 U/L (15-37) Alanine Aminotransferase (ALT/SGPT) 22 U/L (14-59) Alkaline Phosphatase 88 U/L (46-116) Troponin I Quantitative < 0.017 ng/mL (0.000-0.055) GK-Svp-V-Type Natriuretic Peptide 38 pg/mL (0-449) Total Protein 8.2 g/dL (6.4-8.2) Albumin 3.8 g/dL (3.4-5.0) Albumin/Globulin Ratio 0.9 (1.0-1.7) Segmented Neutrophils % 94 % (35-66) Lymphocytes % 4 % (24-48) Monocytes % 2 % (0-10) Platelet Estimate Adequate (ADEQUATE) Thyroid Stimulating Hormone (TSH) 0.853 uIU/mL (0.358-3.74) Urine Collection Type Unknown Urine Color Yellow Urine Clarity Clear Urine pH 5.5 Urine Specific [place] 1.020 Urine Protein Negative mg/dL (NEG-TRACE) Urine Glucose (UA) Negative mg/dL (NEG) Urine Ketones (Stick) Negative mg/dL (NEG) Urine Blood Negative (NEG) Urine Nitrite Negative (NEG) Urine Bilirubin Negative (NEG) Urine Urobilinogen Dipstick 0.2 mg/dL (0.2 mg/dL) Urine Leukocyte Esterase Negative (NEG) Urine RBC 0 /HPF (0-2) Urine WBC Occ /HPF (0-4) Urine Squamous Epithelial Cells Few /LPF Urine Bacteria Few /HPF (0-FEW) Urine Mucus Mod /LPF Vitamin B12 Level 532 pg/mL (247-911) Laboratory Tests Test 11/17/16 07:00 White Blood Count 6.5 x10^3/uL (4.0-11.0) Red Blood Count 4.59 x10^6/uL (3.50-5.40) Hemoglobin 13.4 g/dL (12.0-15.5) Hematocrit 43.3 % (36.0-47.0) Mean Corpuscular Volume 94 fL (79-100) Mean Corpuscular Hemoglobin 29 pg (25-35) Mean Corpuscular Hemoglobin Concent 31 g/dL (31-37) Red Cell Distribution Width 14.7 % (11.5-14.5) Platelet Count 153 x10^3/uL (140-400) Neutrophils (%) (Auto) 89 % (31-73) Lymphocytes (%) (Auto) 5 % (24-48) Monocytes (%) (Auto) 6 % (0-9) Eosinophils (%) (Auto) 0 % (0-3) Basophils (%) (Auto) 0 % (0-3) Neutrophils # (Auto) 5.8 x10^3uL (1.8-7.7) Lymphocytes # (Auto) 0.3 x10^3/uL (1.0-4.8) Monocytes # (Auto) 0.4 x10^3/uL (0.0-1.1) Eosinophils # (Auto) 0.0 x10^3/uL (0.0-0.7) Basophils # (Auto) 0.0 x10^3/uL (0.0-0.2) Sodium Level 140 mmol/L (136-145) Potassium Level 4.7 mmol/L (3.5-5.1) Chloride Level 100 mmol/L (98-107) Carbon Dioxide Level 36 mmol/L (21-32) Anion Gap 4 (6-14) Blood Urea Nitrogen 12 mg/dL (7-20) Creatinine 0.6 mg/dL (0.6-1.0) Estimated GFR (Cockcroft-Gault) 115.2 Glucose Level 113 mg/dL (70-99) Calcium Level 10.2 mg/dL (8.5-10.1) Vitamin B12 Level 532 pg/mL (247-911) Medications Active Scripts Medications Dose Route/Sig Max Daily Dose Days Date Category Gabapentin 100 Mg Capsule 100 Mg PO TID 30 11/17/16 Rx Lasix (Furosemide) 20 Mg Tablet 1 Tab PO DAILY 09/11/16 Rx Proair Hfa Inhaler (Albuterol Sulfate) 8.5 Gm Hfa.aer.ad 1 Puff INH PRN Q6HRS PRN 30 09/11/16 Rx Impression . 1. Dyspnea with hypoxia, most likely secondary to acute asthma exacerbation in a patient with known history of asthma. resolved 2. No definite pneumonia seen on the chest x-ray. There is some mild blunting of the left costophrenic angle, which may be due to pleural thickening. 3. Leukopenia, could be viral induced and need to monitor closely. 4. Lower extremity edema. Plan . 1. Continue with present DuoNebs. 2. steroids, nebulizer. 3. dc steroids, clear lungs 4. nl TSH level. 5. dc oxygen. 6 min walk today 6. Discussed with Dr Vasquez. ok with dc home EDILBERTO FLETCHER MD Nov 17, 2016 12:19
--- NOTE | 2016-11-17 14:43 | PDOC3 ---
Discharge Summary [facility] Date of Admission: Nov 15, 2016 Discharge Date: Nov 17, 2016 Admitting Diagnosis acute hypoxic resp failure with asthma/copd exacerbation h/o asthma likely copd WITH SMOKING tobaccoism morbid obeisity BMI 33.4 bl lower ext chronic lymphedema with pain neuropathy Problems: CONSULTS pulm Brief Hospital Course Patient is a 86 year old female presenting to the emergency department for evaluation of shortness of breath x1 week. Pt is a poor historian, no PCP, lives with her son who is also disabled. Pt is a smoker <1PPD, only on albuterol daily for asthma as per pt. but never fu with a pulm. She said cont having sob x1 week, not exertional. denies cough, chest pain, sputum, fever, chills. + wheezing last night as per pt, but none now. she c/o bl heel pain, said came to ER and was given some abx for 20days before and again 2 days ago, but i cannot find any evidence from our records. as per ERP, Patient does not wear oxygen at home and her room air auction saturation is 82%. now on NC 2L. pt insists she has leg infection and requires me to give her abx. Her son required us to give all vaccine including TDap. pt sat is ok on RA today, cont cough, but refused cough meds. Walked ok with PT , refused SNF OR HH. she cont asking me to give her abx for her leg pain but refuses to take gabapentin, Vitb12 normal. stable todc, educated her to stop smoking, albuterol prn. fu with pcp. 6min walk pending. dc time 35min GEN.: No apparent distress. Alert and oriented. HEENT: Head is normocephalic, atraumatic NECK: Supple. LUNGS: Clear to auscultation. HEART: RRR, S1, S2 present. Peripheral pulses intact ABDOMEN: Soft, nontender. Positive bowel sounds. EXTREMITIES: Without any cyanosis. bl leg 2+ chronic lymphedema, no sign of infection NEUROLOGIC: Normal speech, normal tone PSYCHIATRIC: Normal affect, normal mood. SKIN: No ulcerations Problems: Disposition home CONDITION AT DISCHARGE: Improved Diet regular Scheduled Furosemide (Lasix), 1 TAB PO DAILY Gabapentin (Gabapentin), 100 MG PO TID Scheduled PRN Albuterol Sulfate (Proair Hfa Inhaler), 1 PUFF INH PRN Q6HRS PRN for SHORTNESS OF BREATH Follow Up pcp in 2 weeks TERRANCE BAILEY MD Nov 17, 2016 14:43
== END 2016-11-17 15:45 | disposition home or self-care (01) | DRG 189 ==
LOC: ER 17:29 → 5 NORTH 19:31
PROVIDERS: ADMIT Internal Medicine; ATTEND Internal Medicine
DX: J96.01 Acute respiratory failure with hypoxia (principal); J44.1 Chronic obstructive pulmonary disease with (acute) exacerbation; F03.90 Unspecified dementia, unspecified severity, without behavioral disturbance, psychotic disturbance, mood disturbance, and anxiety; J45.901 Unspecified asthma with (acute) exacerbation; G62.9 Polyneuropathy, unspecified; Z68.33 Body mass index [BMI] 33.0-33.9, adult; D72.819 Decreased white blood cell count, unspecified; F17.210 Nicotine dependence, cigarettes, uncomplicated; Z82.49 Family history of ischemic heart disease and other diseases of the circulatory system; Z90.49 Acquired absence of other specified parts of digestive tract; Z88.8 Allergy status to other drugs, medicaments and biological substances; Z51.5 Encounter for palliative care; I89.0 Lymphedema, not elsewhere classified
CPT/HCPCS: 36415; 71010; 80048; 80053; 81001; 82607; 83735; 83880; 84443; 84484; 85007; 85025; 85610; 85730; 87040; 90686; 90732; 93005; 94250; 94620; 94640; 94760; 96374; 97168; J1650; J2920; J2930; J7613; J7620; J7626; 97116; 97535; 99285-25